=== PATIENT | male | born 1970 | race Two or more races ===

== ENCOUNTER 2024-11-18 11:30 | Emergency (ER) | payer OTHER ==
[~2024-11-18] VITALS: Ht 170.2 cm; Wt 87.1 kg
[2024-11-18] MEDS ORDERED: SYNTHROID137 MCG PO (13:35)
[2024-11-18 15:26] LABS: BASO % 0.5 % (0.1-1.2); EOS # 0.10 (0.04-0.54); EOS % 1.2 % (0.7-7.0); LYMPH # 1.35 (1.18-3.74); LYMPH % 16.4 % (19.3-53.1); MEAN PLATELET VOLUME 9.10 fl (9.4-12.4); MONO # 0.47 (0.24-0.82); MONO % 5.7 % (4.7-12.5); NEUT # 6.20 (1.56-6.13); NEUT % 75.3 % (34.0-71.1); RED CELL DISTRIBUTION WIDTH 12.8 % (11.6-14.4)
[2024-11-18 15:56] LABS: ALT/SGPT 29.0 U/L (12-78); AST/SGOT 18.0 U/L (15-37); BILIRUBIN TOTAL 0.63 mg/dL (0.3-1.2); BUN CREA RATIO 17.0 (7.0-25.0); CREATININE SERUM 1.14 mg/dL (0.70-1.30); GFR 66.69; GLOBULINA 3.8 G/DL (2.4-3.5); GLUCOSE FASTING 101.0 mg/dL (65-100); OSMOLALITY SERUM 282.0 MOSM/KG (275-295)
[2024-11-18] MEDS ORDERED: LOSARTAN POTASSIUM 25 MG TABLET PO ONE (16:30)
== END 2024-11-18 18:09 | disposition home or self-care (01) ==
LOC: ER 13:53
PROVIDERS: Preventive Medicine Public Health & General Preventive Medicine
DX: R03.0 Elevated blood-pressure reading, without diagnosis of hypertension (principal); I10 Essential (primary) hypertension